=== PATIENT | female | born 1940 | race Caucasian/White ===

== ENCOUNTER 2017-06-08 09:55 | Inpatient (IN) ==
[2017-06-08] MEDS ORDERED: *HR* Morphine 2 MG/ML SYRINGE IVP PRN ×2 (10:58→18:20)
[2017-06-08] MEDS ORDERED: 0.9 % Sodium Chloride 1,000 ML IVC SCH ×2 (11:00→18:20)
[2017-06-08 11:22] LABS: Basophils % 0.7 %; Eosinophils # 0.1 K/mcL (0.0-0.6); Eosinophils % 2.2 %; Hematocrit 42.4 % (35.3-44.9); Hemoglobin 13.5 g/dL (11.5-15.4); Immature Granulocytes % 0.2 % (0-4); Lymphocytes # 1.2 K/mcL (0.6-4.6); Lymphocytes % 26.4 %; Mean Corpuscular HGB Conc 31.8 g/dL (31.6-35.5); Mean Corpuscular Hemoglobin 29.3 pg (28.0-33.3); Mean Corpuscular Volume 92.2 fL (83.0-100.0); Mean Platelet Volume 11.6 fL (9.4-12.4); Monocytes # 0.3 K/mcL (0.0-1.3); Monocytes % 6.9 %; Neutrophils # 2.8 K/mcL (1.6-8.9); Platelet Count 142 K/mcL (140-400); Red Cell Distribution Width 14.2 % (11.5-14.5); Segmented Neutrophils % 63.6 %
[2017-06-08 11:33] LABS: BUN/Creatinine Ratio 23 (6-26); Blood Urea Nitrogen 16 mg/dL (7-20); Calcium 9.1 mg/dL (8.6-10.8); Carbon Dioxide 28 mEq/L (19-29); Chloride 110 mEq/L (98-109); Glucose 113 mg/dL (70-99); Osmolality,Calculated 304 (280-300); Potassium 3.6 mEq/L (3.5-4.5); Sodium 146 mEq/L (136-145); eGFR For African Americans > 60 (> 60); eGFR For Non-African Americans > 60 (> 60)
[2017-06-08] MEDS ORDERED: Piperacillin/Tazobactam 3.375 GM in D5% in Water (Mini-Bag+) 100 ML IVPB SCH (12:00)
--- NOTE | 2017-06-08 13:18 | General Surg History&Physical ---
Date of Encounter: 06/08/17 Time of Encounter: 13:16 Assessment and Plan (1) Free intraperitoneal air Current Visit: Yes Status: Acute The assessment and plan as outlined above was discussed with the patient and/or family members who expressed understanding and agreement. All questions were answered. See below. (2) Sigmoid diverticulosis Current Visit: Yes Status: Acute The assessment and plan as outlined above was discussed with the patient and/or family members who expressed understanding and agreement. All questions were answered. Due to the CT scan findings showing free air and a large diverticulum that appears to be complete ruptured the patient will need to undergo an exploration with repair or resection of the sigmoid colon that has the involved segment of diverticulum or free air. Risks and benefits have been discussed with the patient and she agrees to the above plan. History of Present Illness Chief complaint: Free air HPI: Ms. Ruby is a 76 year old female with a history of tubular adenomas was scheduled for repeat colonoscopy had a colonoscopy procedure aborted today due to concern about possible barotrauma an injury to a diverticulum. Patient denies any abdominal pain symptoms nor any nausea or vomiting. A abdominal x- ray was performed with a upright chest x-ray which showed air under the diaphragms. Admitted to [facility] for further evaluation due to the abnormal findings free air and has a CT scan of the abdomen and pelvis ordered. Past Med Surg Social Fam HX - Past Medical History Medical history: diabetes, glaucoma, hyperlipidemia, hypertension Psychiatric history: no psych history - Past Surgical History Surgical History: cataract, cholecystectomy, hysterectomy - Social History Smoking Status: Never smoker Smokeless Tobacco Status: No Alcohol use: none Drug use: none Medications and Allergies Calcium Carbonate [Calcium] 1,200 mg PO DAILY 06/08/17 [History] Cholecalciferol (D-3) [Vitamin D] 1,000 unit PO DAILY 06/08/17 [History] Latanoprost [Xalatan] 1 drop OP QPM 06/08/17 [History] Lisinopril [Zestril] 10 mg PO DAILY 06/08/17 [History] Multivitamin [Multi-Day Vitamins] 1 tab PO DAILY 06/08/17 [History] Sertraline [Zoloft] 100 mg PO DAILY 06/08/17 [History] Simvastatin [Zocor] 20 mg PO HS 06/08/17 [History] 3 Allergy/AdvReac Type Severity Reaction Status Date / Time No Known Allergies Allergy Verified 06/08/17 07:52 Review of Systems All systems PM: reviewed and no additional remarkable complaints except as stated All systems PM: A 10-system review of systems was performed and is negative for pertinent findings except as documented above in the HPI. General Surgery Exam Initial Vital Signs Temp Pulse Resp BP Pulse Ox 97.8 F 56 18 173/75 95 06/08/17 10:45 06/08/17 10:45 06/08/17 10:45 06/08/17 10:45 06/08/17 10:45 - Eyes PERRL, normal ocular movement - Respiratory normal expansion, normal respiratory effort, clear to auscultation - Cardiovascular Cardiovascular exam: Present: RRR, no murmurs/rubs/gallops - Abdomen Abdomen general surgery: Present: bowel sounds present, soft, non tender - Integumentary Integumentary general surgery: Present: warm and dry - Neurologic Present: CN 2-12 grossly intact - Musculoskeletal Present: other (No clubbing, cyanosis, or edema) - Psychiatric Psychiatric general surgery: Present: A&Ox3, appropriate, oriented to person, oriented to place, oriented to time Results - Labs 06/08/17 11:08 06/08/17 11:08 Abnormal lab results Sodium 146 mEq/L (136-145) H 06/08/17 11:08 Chloride 110 mEq/L (98-109) H 06/08/17 11:08 Glucose 113 mg/dL (70-99) H 06/08/17 11:08 Calculated Osmolality 304 (280-300) H 06/08/17 11:08 Diabetes panel 06/08/17 Range/Units 11:08 Sodium 146 H (136-145) mEq/L Potassium 3.6 (3.5-4.5) mEq/L Chloride 110 H (98-109) mEq/L Carbon Dioxide 28 (19-29) mEq/L BUN 16 (7-20) mg/dL Creatinine 0.70 (0.57-1.11) mg/dL Glucose 113 H (70-99) mg/dL Calcium 9.1 (8.6-10.8) mg/dL Calcium panel 06/08/17 Range/Units 11:08 Calcium 9.1 (8.6-10.8) mg/dL Pituitary panel 06/08/17 Range/Units 11:08 Sodium 146 H (136-145) mEq/L Potassium 3.6 (3.5-4.5) mEq/L Chloride 110 H (98-109) mEq/L Carbon Dioxide 28 (19-29) mEq/L BUN 16 (7-20) mg/dL Creatinine 0.70 (0.57-1.11) mg/dL Glucose 113 H (70-99) mg/dL Calcium 9.1 (8.6-10.8) mg/dL Adrenal panel 06/08/17 Range/Units 11:08 Sodium 146 H (136-145) mEq/L Potassium 3.6 (3.5-4.5) mEq/L Chloride 110 H (98-109) mEq/L Carbon Dioxide 28 (19-29) mEq/L BUN 16 (7-20) mg/dL Creatinine 0.70 (0.57-1.11) mg/dL Glucose 113 H (70-99) mg/dL Calcium 9.1 (8.6-10.8) mg/dL All other labs normal. - Imaging Abdominal x-ray: report reviewed, image reviewed (Noted free air under the diaphragm) CT scan - abdomen: report reviewed, image reviewed (Diverticulosis is noted with signs of free air possible ruptured diverticulum at the level of the proximal sigmoid colon)
--- NOTE | 2017-06-08 13:47 | Anesthesia Evaluation PreOp ---
Date of Encounter: 06/08/17 Time of Encounter: 14:00 - Past History Planned Operation: exp. lap Cardiac History: HTN, Hyperlipidemia Pulmonary History: Denies Any Significant HX DRAFTER (CAD) ELECTRICAL History: Denies Any Significant HX Other Medical History: Diabetes Type II, Other (Underwent colonoscopy today and developed sigmoid perforation with free air.) Anesthesia History: No Prior Anesthetic Complications, Past Anesthesia Alcohol Use: none Drug use: none Medications and Allergies Calcium Carbonate [Calcium] 1,200 mg PO DAILY 06/08/17 [History] Cholecalciferol (D-3) [Vitamin D] 1,000 unit PO DAILY 06/08/17 [History] Latanoprost [Xalatan] 1 drop OP QPM 06/08/17 [History] Lisinopril [Zestril] 10 mg PO DAILY 06/08/17 [History] Multivitamin [Multi-Day Vitamins] 1 tab PO DAILY 06/08/17 [History] Sertraline [Zoloft] 100 mg PO DAILY 06/08/17 [History] Simvastatin [Zocor] 20 mg PO HS 06/08/17 [History] 3 Allergy/AdvReac Type Severity Reaction Status Date / Time No Known Allergies Allergy Verified 06/08/17 07:52 - Meds/Allergy Pre-op Review Medications Reviewed: Yes Allergies Reviewed: Yes Beta Blockers on Current Med List: No Anesthesia Results - Labs 06/08/17 11:08 06/08/17 11:08 - Imaging EKG: pending Anesthesia Exam Selected Entries 06/08/17 10:48 Temperature 97.8 F Pulse Rate 56 Respiratory Rate 18 Blood Pressure 173/75 O2 Sat by Pulse Oximetry 95 Weight: 77 kg NPO (# of Hours): over 8 hours - HEENT Pupil (Motor): Pupils equal Mallampati: II Teeth: Missing Oral Opening: Greater than 3 - Cardiac Rhythm: Regular Murmur: None - Pulmonary Breath Sounds: bilateral Clear Respiratory Effort: Symmetrical Anesthesia Assess/Plan ASA Score: 2 Modified [place] Scale for Level of Consciousness: Cooperative, oriented, and tranquil Anesthetic Plan: General Monitoring Plan: Standard Monitors Recovery Plan: PACU (Discussed GA, risks. Agreed to proceed.)
[2017-06-08] MEDS ORDERED: CefOXitin 1,000 MG VIAL ONE (14:10)
[2017-06-08] MEDS ORDERED: *HR* FentaNYL (PF) 100 MCG/2 ML VIAL ONE (14:23)
[2017-06-08] MEDS ORDERED: Lidocaine -MPF 2% 2 ML VIAL ONE (14:23)
[2017-06-08] MEDS ORDERED: *HR* Succinylcholine 200 MG/10 ML VIAL IVP ONE (14:23)
[2017-06-08] MEDS ORDERED: *HR* Rocuronium Bromide 50 MG/5 ML VIAL ONE (14:23)
[2017-06-08] MEDS ORDERED: Ondansetron 4 MG/2 ML VIAL ONE (14:23)
[2017-06-08] MEDS ORDERED: Lidocaine -MPF 4% 5 ML AMPUL ONE (14:23)
[2017-06-08] MEDS ORDERED: Dexamethasone 4 MG/ML VIAL ONE (14:23)
[2017-06-08] MEDS ORDERED: *HR* Midazolam HCl 2 MG/2 ML VIAL ONE (14:23)
[2017-06-08] MEDS ORDERED: *HR* Propofol 200 MG/20 ML VIAL IVP ONE (14:23)
[2017-06-08] MEDS ORDERED: EPHEDrine 50 MG/ML VIAL ONE (15:49)
[2017-06-08] MEDS ORDERED: Neostigmine Methylsulfate 3 MG/3 ML SYRINGE ONE (15:57)
[2017-06-08] MEDS ORDERED: *HR* HYDROmorphone 2 MG/ML SYRINGE ONE (16:54)
--- NOTE | 2017-06-08 17:22 | Operative Note ---
Date of procedure: 06/08/17 Pre-op diagnosis: Free air; sigmoid perforation Post-op diagnosis: same Procedure: 1. Exploratory celiotomy. 2. Repair of perforated sigmoid diverticulum. Implants: 19FR Nathaniel x 1 Anesthesia: GETA Surgeon: Enrique Kuhn Condition: stable Disposition: PACU Procedure in Detail: Date of surgery: 06/08/17 After properly identifying the patient, the patient was brought to the operating room and placed in a supine position. After proper IV sedation was achieved followed by general endotracheal intubation, the patient's abdomen and perineal area was prepped and draped in a normal sterile fashion after the patient was placed in the low lithotomy position. A timeout was performed noting the patient's name and type of procedure to be performed. 15 blade scalpel was used to make an infraumbilical midline incision down towards the pubic symphysis. Dissection was carried through the subcutaneous tissue until the abdominal rectus fascia was encountered and incised. This allowed for entry into the abdomen and an Bobby wound protector was brought onto the operative field. A Bookwalter was used to retract the abdominal wall fascia laterally and based upon the CT scan image the right lower quadrant region of the pelvis was examined. Sigmoid colon was identified in this region which had a clear space and some erythema along the epiploica which was consistent with the CT scan finding of the likely source of the perforation. The epiploica was dissected free with Bovie cauterization demonstrating a perforated diverticulum. The fatty tissue surrounding this diverticulum was cleared with Bovie cauterization and blunt dissection and the decision was made to go ahead and perform a repair using a TA stapler. This was repaired tangentially without difficulty and the staple line was imbricated with interrupted 3-0 silk sutures. The pelvis was then copiously irrigated with normal saline solution containing Mefoxin. The pelvis was reinspected which appear to be clear. The staple line was reinspected which also appeared to be hemostatically under control. The decision was made to place a 19-Polish Nathaniel drain within the pelvis which was sutured in place with a 2-0 nylon suture and Seprafilm was placed within the abdomen. The abdominal wall fascia was closed with a running looped #1 PDS suture 2. The subcutaneous tissue was reapproximated with interrupted 2-0 Vicryl sutures and 3-0 Vicryl sutures. Portions of the wound were left open for packing with quarter-inch plain Nu Gauze was placed for packing. Needle, sponge, and instrument counts were correct 2 and the incision was covered with 4 x 4 gauze. The patient was aroused from IV sedation , extubated in the operating room without complication, and transported to the recovery room in stable condition.
[2017-06-08] MEDS ORDERED: *HR* Heparin 5,000 UNIT/ML VIAL SQ SCH (18:00)
--- NOTE | 2017-06-08 18:11 | Anesthesia Evaluation Post Op ---
Date of Encounter: 06/08/17 Time of Encounter: 18:09 - Vital Signs Vital Signs: O2 Sat Height 1.5 m Weight 77 kg O2 Sat by Pulse Oximetry 93 O2 Sat by Pulse Oximetry 98 O2 Sat by Pulse Oximetry 98 O2 Sat by Pulse Oximetry 95 O2 Sat by Pulse Oximetry 88 O2 Sat by Pulse Oximetry 96 O2 Sat by Pulse Oximetry 95 O2 Sat by Pulse Oximetry 95 Vital Signs Temp Pulse Resp BP Pulse Ox 97.8 F 56 18 173/75 95 06/08/17 10:45 06/08/17 10:45 06/08/17 10:45 06/08/17 10:45 06/08/17 10:45 - Lungs Lungs: Clear Ascult./Percussion - Airway Airway: Non-obstructed - Cardiovascular Regular Rate - Mental Status Mental Status: Alert & Oriented, Answers Appropriately - Pain Pain Scale used: Numeric (1 - 10) - Nausea Vomiting Nausea Vomiting: Not Present - Hydration Hydration: Ice chips, Able to void - Discharge PostOp Status: Discharge Patient to home Anes Supervising Prov Stmt: Pt seen/evaluated, VSS and pt has met criteria for discharge to floor. - MD Alexx
[2017-06-08] MEDS ORDERED: *HR* OxyCODONE/APAP 10/325 TABLET PO PRN (18:20)
[2017-06-08] MEDS ORDERED: Ondansetron 4 MG/2 ML VIAL IVP PRN (18:20)
[2017-06-08] MEDS ORDERED: Naloxone 0.4 MG/ML INJ IVP PRN (18:20)
[2017-06-08] MEDS ORDERED: *HR* Metoprolol 5 MG/5 ML VIAL IVP ONE ×2 (19:33→19:37)
[2017-06-08 20:20] LABS: BUN/Creatinine Ratio 20 (6-26); Blood Urea Nitrogen 15 mg/dL (7-20); Calcium 8.7 mg/dL (8.6-10.8); Carbon Dioxide 23 mEq/L (19-29); Chloride 108 mEq/L (98-109); Glucose 182 mg/dL (70-99); Magnesium 1.7 mg/dL (1.6-2.6); Osmolality,Calculated 297 (280-300); Potassium 3.7 mEq/L (3.5-4.5); Sodium 141 mEq/L (136-145); eGFR For African Americans > 60 (> 60); eGFR For Non-African Americans > 60 (> 60)
[2017-06-08] MEDS ORDERED: Magnesium Sulfate 1 GM in D5% in Water 100 ML IVPB ONE (20:24)
--- NOTE | 2017-06-08 20:30 | Internal Medicine Consult Note ---
Date of Encounter: 06/08/17 Time of Encounter: 20:26 - Assessment and Plan (1) New onset a-fib Current Visit: Yes Status: Acute Assessment and plan: likely related to stress of surgery, cardizem 30mg QID with holding parameters, 1mg IV mg, check Mg/K, repeat EKG in the a.m - hopefully converted to NSR (2) Perforated sigmoid colon Current Visit: Yes Status: Acute Assessment and plan: d/w surgery, doing well from surgical standpoint, management per surgery (3) HTN (hypertension), malignant Current Visit: Yes Status: Acute Assessment and plan: lisinopril (4) HLD (hyperlipidemia) Current Visit: Yes Status: Acute Assessment and plan: continue statin Qualifiers: Hyperlipidemia type: pure hypercholesterolemia Qualified Code(s): E78.00 - Pure hypercholesterolemia, unspecified; E78.0 - Pure hypercholesterolemia (5) Depression Current Visit: Yes Status: Chronic Assessment and plan: continue med. stable Qualifiers: Depression Type: major depressive disorder Major depression recurrence: single episode Active/Remission status: in full remission Qualified Code(s) : F32.5 - Major depressive disorder, single episode, in full remission Internal Medicine - CN: HPI - Data of Consult Consult date: 06/08/17 Requesting Physician: Enrique Kuhn MD - Consult Narrative Reason for consult: New AFib History of present illness: Ms. Ruby is a 76 year old female who presents with new AFib while in the hospital. She has a hx of HTN, HLD, depression. She had an elective colonoscopy today and found a perforated sigmoid diverticulum. She received an exploratory surgery with repair of perforation. She is POD O. However, post-op she developed AFib rvr with rate 172 personally reviewed but responsed quickly to metoprolol IV once. She appears to have been cardioverted with that one time b-yakov. She denies any symptoms at current or during the episode and episode was noted incidentally on monitoring. Past Med Surg Social Fam HX - Past Medical History Medical history: diabetes, glaucoma, hyperlipidemia, hypertension Psychiatric history: no psych history - Past Surgical History Surgical History: cataract, cholecystectomy, hysterectomy - Social History Smoking Status: Never smoker Smokeless Tobacco Status: No Alcohol use: none Drug use: none - Additional Family History Additional family history: HTN Review of systems: ROS 14 point review of systems reviewed as best as possible given presentation. Pertinent positive or negative as per HPI or otherwise reviewed as negative Internal Medicine - CN: Meds Calcium Carbonate [Calcium] 1,200 mg PO DAILY 06/08/17 [History] Cholecalciferol (D-3) [Vitamin D] 1,000 unit PO DAILY 06/08/17 [History] Latanoprost [Xalatan] 1 drop OP QPM 06/08/17 [History] Lisinopril [Zestril] 10 mg PO DAILY 06/08/17 [History] Multivitamin [Multi-Day Vitamins] 1 tab PO DAILY 06/08/17 [History] Sertraline [Zoloft] 100 mg PO DAILY 06/08/17 [History] Simvastatin [Zocor] 20 mg PO HS 06/08/17 [History] 3 Allergy/AdvReac Type Severity Reaction Status Date / Time No Known Allergies Allergy Verified 06/08/17 07:52 Internal Medicine - CN: Exam - Constitutional Vitals: Temp Pulse Resp BP Pulse Ox 97.8 F 67 14 115/74 94 06/08/17 18:50 06/08/17 19:45 06/08/17 18:50 06/08/17 19:45 06/08/17 19:45 Exam: General - AAO x 3 Psych - Appropriate affect/speech. No agitation Eyes - BRENT. Eye lids intact. No scleral icterus Heart - Sinus. RRR. S1 and S2 present. No added HS/murmurs appreciated. No elevated JVD appreciated. Lung - Adequate air entry b/l, No crackles/wheezes appreciated GI - Abdominal drain present. Wound dressed.. No hepatosplenomegaly/ascites. BS+ Skin - Intact. No rash/petechiae/ecchymosis. Warm extremities MSK - Joints with normal ROM. No joint swellings Internal Medicine - CN: Reslt - Labs CBC & Chem 7: 06/08/17 11:08 06/08/17 20:00 Labs: Short CBC 06/08/17 Range/Units 11:08 WBC 4.5 (4.3-11.1) K/mcL Hgb 13.5 (11.5-15.4) g/dL Hct 42.4 (35.3-44.9) % Plt Count 142 (140-400) K/mcL Neutrophils # 2.8 (1.6-8.9) K/mcL BMP 06/08/17 06/08/17 11:08 20:00 Sodium 146 H 141 Potassium 3.6 3.7 Chloride 110 H 108 Carbon Dioxide 28 23 BUN 16 15 Creatinine 0.70 0.74 Glucose 113 H 182 H Calcium 9.1 8.7 - Impressions Impressions Abdomen/Pelvis CT 06/08/17 11:59 IMPRESSION: Extensive free air felt to be related to perforated diverticulum in the distal sigmoid colon. This information was discussed at 1 p.m. on 06/08/[address] Kuhn D/ / Ender Erickson MD / Ender Erickson MD Interpreting Provider: Ender Erickson MD Consult Discharge Plan - Plan Referrals: NONE,PCP [Primary Care Provider] -
[2017-06-08] MEDS: Piperacillin/Tazobactam 3.375 GM in D5% in Water (Mini-Bag+) 100 ML IVPB SCH (21:20)
[2017-06-09] MEDS: Piperacillin/Tazobactam 3.375 GM in D5% in Water (Mini-Bag+) 100 ML IVPB SCH ×3 (04:47→23:09)
[2017-06-09 05:08] LABS: Basophils % 0.1 %; Eosinophils % 0.1 %; Hematocrit 37.7 % (35.3-44.9); Immature Granulocytes % 0.5 % (0-4); Lymphocytes % 8.3 %; Mean Corpuscular HGB Conc 31.8 g/dL (31.6-35.5); Mean Corpuscular Hemoglobin 29.2 pg (28.0-33.3); Mean Corpuscular Volume 91.7 fL (83.0-100.0); Mean Platelet Volume 11.8 fL (9.4-12.4); Monocytes # 0.7 K/mcL (0.0-1.3); Monocytes % 6.1 %; Platelet Count 142 K/mcL (140-400); Red Blood Count 4.11 M/mcL (3.82-4.97); Red Cell Distribution Width 14.6 % (11.5-14.5); Segmented Neutrophils % 84.9 %
[2017-06-09 05:18] LABS: BUN/Creatinine Ratio 19 (6-26); Blood Urea Nitrogen 14 mg/dL (7-20); Calcium 8.7 mg/dL (8.6-10.8); Carbon Dioxide 26 mEq/L (19-29); Chloride 107 mEq/L (98-109); Glucose 152 mg/dL (70-99); Osmolality,Calculated 293 (280-300); Sodium 140 mEq/L (136-145); eGFR For African Americans > 60 (> 60); eGFR For Non-African Americans > 60 (> 60)
[2017-06-09] MEDS: Pantoprazole 40 MG VIAL IVP SCH (08:25)
--- NOTE | 2017-06-09 08:28 | Internal Med Progress Note ---
Date of Encounter: 06/09/17 Time of Encounter: 08:24 - Assessment and plan (1) New onset a-fib Current Visit: Yes Status: Acute Assessment and plan: Triggered by surgery stress Converted back to NSR right away this morning she had another episode with tachycardia / Sinus arrythamia ..but no A fib noticed She got converted back to NSR again with out any interventions For now will cont Cardizem 60mg Q6hr Ordered 2 D Echo her CHADSVAS score 3.. However this is first time A fib triggered by surgery stress, may not need to be fully anticoagulated Will f/u on 2 D Echo If surgery ok, will start her on ASA 81mg daily Ordered f/u EKG now Talked to the pt's family at bed side and explained to them about current care (2) Perforated sigmoid colon Current Visit: Yes Status: Acute Assessment and plan: s/p Exploratory Celiotomy POD # 1 WBC went up little bit.. mostly reactive Cont current excellent post op care by primary team cont empirical abx Zosyn Diet orders as per surgery recommendations only (3) HTN (hypertension), malignant Current Visit: Yes Status: Acute Assessment and plan: Stable.. On Cardizem PO (4) HLD (hyperlipidemia) Current Visit: Yes Status: Acute Assessment and plan: on statin Qualifiers: Hyperlipidemia type: pure hypercholesterolemia Qualified Code(s): E78.00 - Pure hypercholesterolemia, unspecified; E78.0 - Pure hypercholesterolemia (5) Depression Current Visit: Yes Status: Chronic Assessment and plan: continue home meds Qualifiers: Depression Type: major depressive disorder Major depression recurrence: single episode Active/Remission status: in full remission Qualified Code(s) : F32.5 - Major depressive disorder, single episode, in full remission - Subjective Interval history: Ms. Ruby is a 76 year old female who presents with new AFib while in the hospital. She has a hx of HTN, HLD, depression. She had an elective colonoscopy 06/08/17 and found a perforated sigmoid diverticulum. She received an exploratory surgery with repair of perforation. However, post-op she developed AFib rvr with rate 172 responded quickly to metoprolol 2.5 mg IV once. She appears to have been cardioverted with that one time b-yakov. This is morning pt is alert, awkae and O x 3, denied any CP / SOB / Palpiations. However on medical administrative technician she went into sinus arrhythmia / sinus tachycardia for 10-15 minutes HR in 130's. She got converted back to NSR right away by herself with out any medication intervene. Pt denied any nausea / vomiting. No BM , not passing gas yet. Pain tolerable with medications - Constitutional Vitals: Temp Pulse Resp BP Pulse Ox 98.4 F 137 16 146/68 96 06/09/17 07:08 06/09/17 08:23 06/09/17 07:08 06/09/17 07:08 06/09/17 07:08 General appearance: Present: A&O X 3, pleasant, no acute distress, answers questions appropriately - Head Head exam: Present: atraumatic, normal inspection - Respiratory Respiratory exam: Present: decreased breath sounds, wheezes. Absent: rales, respiratory distress, rhonchi - Cardiovascular Cardiovascular exam: Present: irregular rhythm, +S1, +S2, tachycardia - GI/Abdominal GI/Abdominal exam: Present: hypoactive bowel sounds, soft, tenderness (around incision area). Absent: rebound, rigid Additional comments: NICOLE drainage tube + - Extremities Exam Extremities exam: Absent: calf tenderness, pedal edema, tenderness - Neurological Exam Neurological exam: Present: alert, oriented X3, no focal deficits - Psychiatric Psychiatric exam: Present: anxious Internal Medicine: Result - Labs CBC & Chem 7: 06/09/17 04:50 06/09/17 04:50 Labs: Short CBC 06/08/17 06/09/17 Range/Units 11:08 04:50 WBC 4.5 11.8 H D (4.3-11.1) K/mcL Hgb 13.5 12.0 D (11.5-15.4) g/dL Hct 42.4 37.7 (35.3-44.9) % Plt Count 142 142 (140-400) K/mcL Neutrophils # 2.8 10.0 H (1.6-8.9) K/mcL BMP 06/08/17 06/08/17 06/09/17 11:08 20:00 04:50 Sodium 146 H 141 140 Potassium 3.6 3.7 4.0 Chloride 110 H 108 107 Carbon Dioxide 28 23 26 BUN 16 15 14 Creatinine 0.70 0.74 0.73 Glucose 113 H 182 H 152 H Calcium 9.1 8.7 8.7 - Impressions Impressions Abdomen/Pelvis CT 06/08/17 11:59 IMPRESSION: Extensive free air felt to be related to perforated diverticulum in the distal sigmoid colon. This information was discussed at 1 p.m. on 06/08/[address] Kuhn D/ / Ender Erickson MD / Ender Erickson MD Interpreting Provider: Ender Erickson MD - VTE Documentation of Mechanical Device: Intermittent pneumatic compression device Consult Discharge Plan - Plan Referrals: NONE,PCP [Primary Care Provider] -
[2017-06-09] MEDS ORDERED: Pantoprazole 40 MG VIAL IVP SCH (09:00)
--- NOTE | 2017-06-09 09:21 | General Surgery Progress Note ---
<Fartun Lewis A - Last Filed: 06/09/17 09:40> Date of Encounter: 06/09/17 Time of Encounter: 09:00 - Assessment and Plan (1) Perforated sigmoid colon Current Visit: Yes Status: Acute POD #1 Exploratory celiotomy and Repair of perforated sigmoid diverticulum Clear liquid diet IV antibiotics- Zosyn Supportive care and pain control Out of bed to chair and ambulate hallways with assistance today PPI therapy daily D/C sharp catheter IS every 1 hour while awake Start daily dressing changes Patient and family education- drain care and packing Repeat am labs (2) Free intraperitoneal air Current Visit: Yes Status: Acute POD #1 Exploratory celiotomy and Repair of perforated sigmoid diverticulum Clear liquid diet IV antibiotics- Zosyn Supportive care and pain control Out of bed to chair and ambulate hallways with assistance today PPI therapy daily D/C sharp catheter IS every 1 hour while awake Start daily dressing changes Patient and family education- drain care and packing Repeat am labs (3) New onset a-fib Current Visit: Yes Status: Acute Management per medicine service Spontaneously resolved Cardizem every 6 hours May start ASA 81mg daily from surgery standpoint (4) DVT prophylaxis Current Visit: Yes Status: Acute Heparin 5,000 units SQ twice daily for DVT prophylaxis EPCDs to bilateral lower extremities for DVT prophylaxis Ambulate hallways TID with assistance Subjective Patient reports: no new complaints, feels better, still having pain (minimal, expected surgical pain), tolerating liquids well, no flatus, no bowel movement, afebrile, other (Episodes of A. Fib and tachycardia noted- spontaneous resolution, management per medicine service) Objective Vital Signs - Last 8 Hours Temp Pulse Resp BP Pulse Ox 06/09/17 08:28 74 06/09/17 08:25 124/68 06/09/17 08:23 137 06/09/17 07:08 98.4 F 60 16 146/68 96 06/09/17 04:21 98.8 F 65 16 126/68 96 Intake and Output 06/08/17 06/09/17 06/09/17 23:59 07:59 15:59 Intake Total 104 / 104 100 / 100 Output Total 420 / 420 160 / 160 Balance -316 / -316 -60 / -60 - Intake: IV Fluids 104 / 104 100 / 100 Magnesium Sulfate 1 GM In 104 / 104 Dextrose 5% 100 ML @ 100 mls/hr IVPB ONCE ONE Rx# :[id number] Zosyn 3.375 GM In 100 / 100 Dextrose 5% (Minibag+) 100 ML 100 ML @ 25 mls/hr IVPB Q8H [facility]LY [facility] Rx#: [id number] Output: Urine 0 / 0 Estimated Blood Loss Catheter 350 / 350 150 / 150 Wound Drainage 55 Left Lower Abdomen 55 Other: Weight 80.2 kg Blood Glucose* 168 154 Patient Weight 06/09/17 23:59 Weight 80.2 kg - General physical appearance well developed, well nourished, no distress - Eyes normal ocular movement - ENT normal mucosa, atraumatic, normocephalic - Neck Neck exam: trachea midline - Respiratory normal respiratory effort, clear to auscultation, other (IS at bedside) - Cardiovascular Cardiovascular exam: Present: RRR - Abdomen Abdomen: Present: bowel sounds present (hypoactive), soft, tender (expected post -operative tenderness), wound (NICOLE drain to bulb suction with scant amount of serousang. drainage noted. Midline with scant amount of serousang. drainage noted. ) - Genitourinary other (sharp catheter to SD with clear, yellow urine noted (500ml noted since surgery)) - Integumentary no rash, no growths, no abnormal pigmentation - Neurologic CN 2-12 grossly intact - Psychiatric oriented to time, oriented to person, oriented to place, speech is normal, memory intact - Labs 06/09/17 04:50 06/09/17 04:50 Diabetes panel 06/08/17 06/08/17 06/09/17 Range/Units 11:08 20:00 04:50 Sodium 146 H 141 140 (136-145) mEq/L Potassium 3.6 3.7 4.0 (3.5-4.5) mEq/L Chloride 110 H 108 107 (98-109) mEq/L Carbon Dioxide 28 23 26 (19-29) mEq/L BUN 16 15 14 (7-20) mg/dL Creatinine 0.70 0.74 0.73 (0.57-1.11) mg/dL Glucose 113 H 182 H 152 H (70-99) mg/dL Calcium 9.1 8.7 8.7 (8.6-10.8) mg/dL Calcium panel 06/08/17 06/08/17 06/09/17 Range/Units 11:08 20:00 04:50 Calcium 9.1 8.7 8.7 (8.6-10.8) mg/dL Pituitary panel 06/08/17 06/08/17 06/09/17 Range/Units 11:08 20:00 04:50 Sodium 146 H 141 140 (136-145) mEq/L Potassium 3.6 3.7 4.0 (3.5-4.5) mEq/L Chloride 110 H 108 107 (98-109) mEq/L Carbon Dioxide 28 23 26 (19-29) mEq/L BUN 16 15 14 (7-20) mg/dL Creatinine 0.70 0.74 0.73 (0.57-1.11) mg/dL Glucose 113 H 182 H 152 H (70-99) mg/dL Calcium 9.1 8.7 8.7 (8.6-10.8) mg/dL Adrenal panel 06/08/17 06/08/17 06/09/17 Range/Units 11:08 20:00 04:50 Sodium 146 H 141 140 (136-145) mEq/L Potassium 3.6 3.7 4.0 (3.5-4.5) mEq/L Chloride 110 H 108 107 (98-109) mEq/L Carbon Dioxide 28 23 26 (19-29) mEq/L BUN 16 15 14 (7-20) mg/dL Creatinine 0.70 0.74 0.73 (0.57-1.11) mg/dL Glucose 113 H 182 H 152 H (70-99) mg/dL Calcium 9.1 8.7 8.7 (8.6-10.8) mg/dL - VTE Documentation of Mechanical Device: Intermittent pneumatic compression device Consult Discharge Plan - Plan Additional Instructions: #1 may shower now, no tub bath until cleared per surgeon #2 wash incisions with soap and water and pat dry daily #3 no lifting, pushing, pulling more than 15 pounds for the next 4 weeks #4 no driving until off narcotics for 24 hours and able to safely react in the car #5 may climb stairs Wound care: #1 midline incision- cleanse around incision with soap and water and pat dry daily, pack open areas with a quarter inch plain gauze, covered with dry dressing, tape to secure daily #2 NICOLE drain- cleanse around drain with soap and water and pat dry daily, apply split 4 x 4 gauze and tape to secure daily. Empty drain 2 times daily and as needed if full, record outputs on drain record and bring to follow up appointment on 06/15/2017 with Fartun Lewis Referrals: Fartun Lewis, SENIOR COPYWRITER [Advanced Practice Nurse] - 06/15/17 11:45 am (surgery follow-up; drain check) NONE,PCP [Primary Care Provider] - (Set patient up with primary care provider prior to discharge and schedule appointment within 5-7 days of discharge.) - Attending Attestation For this encounter, I have reviewed the BUILDING CERTIFIER or PA documentation, treatment plan, and medical decision making; and I have had face to face time with this patient. <Enrique Kuhn - Last Filed: 06/09/17 13:57> Date of Encounter: 06/09/17 - Assessment and Plan (1) Free intraperitoneal air Current Visit: Yes Status: Resolved (2) Sigmoid diverticulosis Current Visit: Yes Status: Acute Objective Vital Signs - Last 8 Hours Temp Pulse Resp BP Pulse Ox 06/09/17 12:25 99.1 F 65 16 125/72 96 06/09/17 08:28 74 06/09/17 08:25 124/68 06/09/17 08:23 137 06/09/17 07:08 98.4 F 60 16 146/68 96 Intake and Output 06/08/17 06/09/17 06/09/17 23:59 07:59 15:59 Intake Total 104 / 104 100 / 100 Output Total 420 / 420 160 / 160 764 / 764 Balance -316 / -316 -60 / -60 -764 / -764 Intake: IV Fluids 104 / 104 100 / 100 Magnesium Sulfate 1 GM In 104 / 104 Dextrose 5% 100 ML @ 100 mls/hr IVPB ONCE ONE Rx# :[id number] Zosyn 3.375 GM In 100 / 100 Dextrose 5% (Minibag+) 100 ML 100 ML @ 25 mls/hr IVPB Q8H [facility] Rx#: [id number] Output: Urine 0 / 0 750 / 750 Estimated Blood Loss Catheter 350 / 350 150 / 150 Wound Drainage 55 / 55 Left Lower Abdomen 55 / 55 Other: Weight 80.2 kg Blood Glucose* 168 144 Patient Weight 06/09/17 23:59 Weight 80.2 kg - Labs 06/09/17 04:50 06/09/17 04:50 Diabetes panel 06/08/17 06/09/17 Range/Units 20:00 04:50 Sodium 141 140 (136-145) mEq/L Potassium 3.7 4.0 (3.5-4.5) mEq/L Chloride 108 107 (98-109) mEq/L Carbon Dioxide 23 26 (19-29) mEq/L BUN 15 14 (7-20) mg/dL Creatinine 0.74 0.73 (0.57-1.11) mg/dL Glucose 182 H 152 H (70-99) mg/dL Calcium 8.7 8.7 (8.6-10.8) mg/dL Calcium panel 06/08/17 06/09/17 Range/Units 20:00 04:50 Calcium 8.7 8.7 (8.6-10.8) mg/dL Pituitary panel 06/08/17 06/09/17 Range/Units 20:00 04:50 Sodium 141 140 (136-145) mEq/L Potassium 3.7 4.0 (3.5-4.5) mEq/L Chloride 108 107 (98-109) mEq/L Carbon Dioxide 23 26 (19-29) mEq/L BUN 15 14 (7-20) mg/dL Creatinine 0.74 0.73 (0.57-1.11) mg/dL Glucose 182 H 152 H (70-99) mg/dL Calcium 8.7 8.7 (8.6-10.8) mg/dL Adrenal panel 06/08/17 06/09/17 Range/Units 20:00 04:50 Sodium 141 140 (136-145) mEq/L Potassium 3.7 4.0 (3.5-4.5) mEq/L Chloride 108 107 (98-109) mEq/L Carbon Dioxide 23 26 (19-29) mEq/L BUN 15 14 (7-20) mg/dL Creatinine 0.74 0.73 (0.57-1.11) mg/dL Glucose 182 H 152 H (70-99) mg/dL Calcium 8.7 8.7 (8.6-10.8) mg/dL - Attending Attestation I reviewed the above assessment and evaluation with an power plant electrician and agree with the above plan. Patient has no abdominal pain dressing is intact. Minimal NICOLE bulb drainage. Will advance diet to full liquids this afternoon. The patient continues to do well possible further advancement of her diet tomorrow possible discharge within the next 24 hours.
--- NOTE | 2017-06-09 11:06 | Discharge Summary ---
<Fartun Lewis - Last Filed: 06/09/17 11:06> Date of Encounter: 06/09/17 Time of Encounter: 11:05 - Discharge Diagnosis (1) Perforated sigmoid colon Priority: Primary Status: Resolved (2) Free intraperitoneal air Priority: Primary Status: Resolved (3) New onset a-fib Priority: Secondary Status: Acute - Discharge Medications Home Medications: Calcium Carbonate [Calcium] 1,200 mg PO DAILY 06/08/17 [History] Cholecalciferol (D-3) [Vitamin D] 1,000 unit PO DAILY 06/08/17 [History] Latanoprost [Xalatan] 1 drop OP QPM 06/08/17 [History] Lisinopril [Zestril] 10 mg PO DAILY 06/08/17 [History] Multivitamin [Multi-Day Vitamins] 1 tab PO DAILY 06/08/17 [History] Sertraline [Zoloft] 100 mg PO DAILY 06/08/17 [History] Simvastatin [Zocor] 20 mg PO HS 06/08/17 [History] Amoxicillin/Clavulanate [Augmentin] 875 mg PO BIDWM #20 tablet 06/09/17 [Rx] Aspirin 81 mg PO DAILY #30 06/09/17 [Rx] Docusate [Colace] 100 mg PO BID #30 capsule 06/09/17 [Rx] Ibuprofen [Motrin] 600 mg PO Q8HR PRN #40 tab 06/09/17 [Rx] OxyCODONE/APAP 5/325 [Percocet 5/325 MG] 1 each PO Q6HR PRN #28 tablet 06/09/17 [Rx] Allergies/Adverse Reactions: 3 Allergy/AdvReac Type Severity Reaction Status Date / Time No Known Allergies Allergy Verified 06/08/17 07:52 General Surgery Exam Initial Vital Signs Temp Pulse Resp BP Pulse Ox 97.8 F 56 18 173/75 95 06/08/17 10:45 06/08/17 10:45 06/08/17 10:45 06/08/17 10:45 06/08/17 10:45 Date of admission: 06/08/17 10:22 Primary care physician: PCP NONE Discharging clinician: Ramo Lewis) Anticipated date of discharge: 06/11/17 - Patient Status Condition: Good Functional capacity at discharge: independent ambulation Overall status at discharge: patient is progressing back to baseline - Discharge Instructions Follow Up With: NONE,PCP [Primary Care Provider] - (Set patient up with primary care provider prior to discharge and schedule appointment within 5-7 days of discharge.) Fartun Lewis, SALVAGE ENGINEERING TECHNICIAN [Advanced Practice Nurse] - 06/15/17 11:45 am (surgery follow-up; drain check) Additional Instructions: #1 may shower now, no tub bath until cleared per surgeon #2 wash incisions with soap and water and pat dry daily #3 no lifting, pushing, pulling more than 15 pounds for the next 4 weeks #4 no driving until off narcotics for 24 hours and able to safely react in the car #5 may climb stairs Wound care: #1 midline incision- cleanse around incision with soap and water and pat dry daily, pack open areas with a quarter inch plain gauze, covered with dry dressing, tape to secure daily #2 NICOLE drain- cleanse around drain with soap and water and pat dry daily, apply split 4 x 4 gauze and tape to secure daily. Empty drain 2 times daily and as needed if full, record outputs on drain record and bring to follow up appointment on 06/15/2017 with Fartun Lewis - Diet and Activity Activity: other (See additional instructions above) Diet: advance to your usual diet - Hospital Course Hospital course: Ms. Ruby is a 76 year old female who is status post an outpatient colonoscopy with Dr. Kuhn. She did have complications which included perforation of the sigmoid colon. She was maintained on bowel rest and started on IV fluids and IV antibiotics. She was taken to the operating room and did undergo exploratory celiotomy with repair of sigmoid perforation with Dr. Kuhn. She was continued on IV antibiotics postoperatively. She did experience postoperative atrial fibrillation with RVR. The hospitalist service was consulted for management and the patient was initiated on Cardizem and baby aspirin. 2D echo was complete. She was started on a clear liquid diet and slowly advanced as tolerated. Daily dressing change with packing was initiated on postoperative day 1. The patient's daughter states that she can complete these dressing changes and drain care upon discharge to home. We will begin discharge planning to home when patient meets discharge criteria including vital signs are stable and afebrile, pain is well-controlled, laboratory values are stable, voiding and ambulating without difficulty, tolerating a diet without nausea or vomiting. - Time Spent with Patient Total time spent providing and/or coordinating discharge services: Less than 30 minutes Labs on day of discharge: Labs from last 24 hours 06/09/17 06/09/17 06/09/17 09:01 04:50 04:50 WBC 11.8 H D RBC 4.11 Hgb 12.0 D Hct 37.7 MCV 91.7 MCH 29.2 MCHC 31.8 RDW 14.6 H Plt Count 142 MPV 11.8 Immature Gran % 0.5 Seg Neutrophils % 84.9 Lymphocytes % 8.3 Monocytes % 6.1 Eosinophils % 0.1 Basophils % 0.1 Neutrophils # 10.0 H Lymphocytes # 1.0 Monocytes # 0.7 Eosinophils # 0.0 Basophils # 0.0 Sodium 140 Potassium 4.0 Chloride 107 Carbon Dioxide 26 BUN 14 Creatinine 0.73 Est GFR ( Amer) > 60 Est GFR (Non-Af Amer) > 60 BUN/Creatinine Ratio 19 Glucose 152 H POC Glucose 154 H Calculated Osmolality 293 Calcium 8.7 Magnesium 2.0 06/08/17 06/08/17 06/08/17 20:26 20:00 11:08 WBC RBC Hgb Hct MCV MCH MCHC RDW Plt Count MPV Immature Gran % Seg Neutrophils % Lymphocytes % Monocytes % Eosinophils % Basophils % Neutrophils # Lymphocytes # Monocytes # Eosinophils # Basophils # Sodium 141 146 H Potassium 3.7 3.6 Chloride 108 110 H Carbon Dioxide 23 28 BUN 15 16 Creatinine 0.74 0.70 Est GFR ( Amer) > 60 > 60 Est GFR (Non-Af Amer) > 60 > 60 BUN/Creatinine Ratio 20 23 Glucose 182 H 113 H POC Glucose 168 H Calculated Osmolality 297 304 H Calcium 8.7 9.1 Magnesium 1.7 06/08/17 11:08 WBC 4.5 RBC 4.60 Hgb 13.5 Hct 42.4 MCV 92.2 MCH 29.3 MCHC 31.8 RDW 14.2 Plt Count 142 MPV 11.6 Immature Gran % 0.2 Seg Neutrophils % 63.6 Lymphocytes % 26.4 Monocytes % 6.9 Eosinophils % 2.2 Basophils % 0.7 Neutrophils # 2.8 Lymphocytes # 1.2 Monocytes # 0.3 Eosinophils # 0.1 Basophils # 0.0 Sodium Potassium Chloride Carbon Dioxide BUN Creatinine Est GFR ( Amer) Est GFR (Non-Af Amer) BUN/Creatinine Ratio Glucose POC Glucose Calculated Osmolality Calcium Magnesium - Impressions ITS Impressions Abdomen/Pelvis CT 06/08/17 11:59 IMPRESSION: Extensive free air felt to be related to perforated diverticulum in the distal sigmoid colon. This information was discussed at 1 p.m. on 06/08/[address] Kuhn D/ / Ender Erickson MD / Ender Erickson MD Interpreting Provider: Ender Erickson MD <Ramo Anderson E - Last Filed: 06/10/17 05:36> Date of Encounter: 06/10/17 General Surgery Exam Initial Vital Signs Temp Pulse Resp BP Pulse Ox 97.8 F 56 18 173/75 95 06/08/17 10:45 06/08/17 10:45 06/08/17 10:45 06/08/17 10:45 06/08/17 10:45 Date of admission: 06/09/17 12:06 Primary care physician: PCP NONE - Patient Status Functional capacity at discharge: independent ambulation Overall status at discharge: patient is progressing back to baseline - Hospital Course Hospital course: Ms. Ruby is a 76 year old female - Time Spent with Patient Total time spent providing and/or coordinating discharge services: Labs on day of discharge: Labs from last 24 hours 06/10/17 06/10/17 06/10/17 03:11 03:11 03:11 WBC 10.3 RBC 4.05 Hgb 12.1 Hct 37.7 MCV 93.1 MCH 29.9 MCHC 32.1 RDW 14.8 H Plt Count 133 L MPV 12.5 H Immature Gran % 0.3 Seg Neutrophils % 79.1 Lymphocytes % 11.7 Monocytes % 7.4 Eosinophils % 1.3 Basophils % 0.2 Neutrophils # 8.1 Lymphocytes # 1.2 Monocytes # 0.8 Eosinophils # 0.1 Basophils # 0.0 Sodium 141 Potassium 3.9 Chloride 107 Carbon Dioxide 28 BUN 12 Creatinine 0.67 Est GFR ( Amer) > 60 Est GFR (Non-Af Amer) > 60 BUN/Creatinine Ratio 18 Glucose 158 H POC Glucose Calculated Osmolality 295 Calcium 8.8 Magnesium 1.9 06/09/17 06/09/17 06/09/17 21:14 15:24 12:27 WBC RBC Hgb Hct MCV MCH MCHC RDW Plt Count MPV Immature Gran % Seg Neutrophils % Lymphocytes % Monocytes % Eosinophils % Basophils % Neutrophils # Lymphocytes # Monocytes # Eosinophils # Basophils # Sodium Potassium Chloride Carbon Dioxide BUN Creatinine Est GFR ( Amer) Est GFR (Non-Af Amer) BUN/Creatinine Ratio Glucose POC Glucose 145 H 201 H 144 H Calculated Osmolality Calcium Magnesium 06/09/17 06/08/17 09:01 20:26 WBC RBC Hgb Hct MCV MCH MCHC RDW Plt Count MPV Immature Gran % Seg Neutrophils % Lymphocytes % Monocytes % Eosinophils % Basophils % Neutrophils # Lymphocytes # Monocytes # Eosinophils # Basophils # Sodium Potassium Chloride Carbon Dioxide BUN Creatinine Est GFR ( Amer) Est GFR (Non-Af Amer) BUN/Creatinine Ratio Glucose POC Glucose 154 H 168 H Calculated Osmolality Calcium Magnesium - Impressions ITS Impressions Abdomen/Pelvis CT 06/08/17 11:59 IMPRESSION: Extensive free air felt to be related to perforated diverticulum in the distal sigmoid colon. This information was discussed at 1 p.m. on 06/08/[address] Kuhn D/ / Ender Erickson MD / Ender Erickson MD Interpreting Provider: Ender Erickson MD - Attending Attestation Patient's been tolerating liquids without any difficulties. She ambulates independently. Therefore, we will plan for discharge this morning after breakfast.
[2017-06-09] MEDS ORDERED: Acetaminophen 325 MG TABLET PO PRN (11:35)
[2017-06-09] MEDS ORDERED: *HR* OxyCODONE/APAP 5/325 TABLET PO PRN (11:35)
[2017-06-09] MEDS ORDERED: *HR* Morphine 2 MG/ML SYRINGE IVP PRN (11:35)
[2017-06-09] MEDS: Aspirin 81 MG TAB.CHEW PO SCH (13:41)
--- NOTE | 2017-06-09 14:47 | Electrocardiograph Report ---
[place] [id number] Test Date: 2017-06-09 Pat Name: Abida Ruby Department: 114 Room: [facility] Gender: F Hand Miter Operator: : 1940 Requested By: Sandrine Bean Order Number: [id number] Reading MD: Fartun Starkey Measurements Intervals [place] Rate: 65 P: 90 WV: 189 QRS: -4 QRSD: 96 T: 75 QT: 389 QTc: 400 Interpretive Statements SINUS RHYTHM NONSPECIFIC T-WAVE ABNORMALITY Electronically Signed On 06-09-2017 14:45:39 EDT by Fartun Starkey
--- NOTE | 2017-06-09 15:57 | Electrocardiograph Report ---
[address] [place], [place] [address] Test Date: 2017-06-08 Pat Name: Abida Ruby Department: 114 Room: [facility] Gender: F Broomcorn Seeder: : 1940 Requested By: Anmol Vogel Order Number: [id number] Reading MD: Fartun Starkey Measurements Intervals [place] Rate: 172 P: FL: 0 QRS: 11 QRSD: 103 T: -60 QT: 234 QTc: 327 Interpretive Statements ATRIAL FIBRILLATION WITH RAPID VENTRICULAR RESPONSE POSSIBLE ANTERIOR MYOCARDIAL INFARCTION, PROBABLY OLD INFERIOR MYOCARDIAL INFARCTION, OF INDETERMINATE AGE ST DEPRESSION, CONSIDER SUBENDOCARDIAL INJURY Electronically Signed On 06-09-2017 15:55:47 EDT by Fartun Starkey
--- NOTE | 2017-06-09 16:29 | Electrocardiograph Report ---
[place] [id number] Test Date: 2017-06-08 Pat Name: Abida Ruby Department: 114 Room: [facility] Gender: F End Trimmer: : 1940 Requested By: Enrique Kuhn Order Number: [id number] Reading MD: Fartun Starkey Measurements Intervals [place] Rate: 63 P: 105 MO: 201 QRS: -24 QRSD: 106 T: 70 QT: 387 QTc: 394 Interpretive Statements SINUS RHYTHM BORDERLINE LEFT AXIS DEVIATION NONSPECIFIC T-WAVE ABNORMALITY Electronically Signed On 06-09-2017 16:27:55 EDT by Fartun Starkey
[2017-06-09] MEDS: *HR* Heparin 5,000 UNIT/ML VIAL SQ SCH (17:38)
[2017-06-10 04:47] LABS: Basophils % 0.2 %; Eosinophils # 0.1 K/mcL (0.0-0.6); Eosinophils % 1.3 %; Hematocrit 37.7 % (35.3-44.9); Hemoglobin 12.1 g/dL (11.5-15.4); Immature Granulocytes % 0.3 % (0-4); Lymphocytes # 1.2 K/mcL (0.6-4.6); Lymphocytes % 11.7 %; Mean Corpuscular HGB Conc 32.1 g/dL (31.6-35.5); Mean Corpuscular Hemoglobin 29.9 pg (28.0-33.3); Mean Corpuscular Volume 93.1 fL (83.0-100.0); Mean Platelet Volume 12.5 fL (9.4-12.4); Monocytes # 0.8 K/mcL (0.0-1.3); Monocytes % 7.4 %; Neutrophils # 8.1 K/mcL (1.6-8.9); Platelet Count 133 K/mcL (140-400); Red Blood Count 4.05 M/mcL (3.82-4.97); Red Cell Distribution Width 14.8 % (11.5-14.5); Segmented Neutrophils % 79.1 %
[2017-06-10 05:02] LABS: BUN/Creatinine Ratio 18 (6-26); Blood Urea Nitrogen 12 mg/dL (7-20); Calcium 8.8 mg/dL (8.6-10.8); Carbon Dioxide 28 mEq/L (19-29); Chloride 107 mEq/L (98-109); Glucose 158 mg/dL (70-99); Osmolality,Calculated 295 (280-300); Potassium 3.9 mEq/L (3.5-4.5); Sodium 141 mEq/L (136-145); eGFR For African Americans > 60 (> 60); eGFR For Non-African Americans > 60 (> 60)
[2017-06-10] MEDS: Piperacillin/Tazobactam 3.375 GM in D5% in Water (Mini-Bag+) 100 ML IVPB SCH ×2 (05:34→13:11)
[2017-06-10] MEDS: *HR* Heparin 5,000 UNIT/ML VIAL SQ SCH (05:35)
[2017-06-10] MEDS ORDERED: Diltiazem CD (24hr) 180 MG CAPSULE PO SCH (09:00)
--- NOTE | 2017-06-10 09:04 | Internal Med Progress Note ---
Date of Encounter: 06/10/17 Time of Encounter: 09:00 - Assessment and plan (1) New onset a-fib Current Visit: Yes Status: Acute Assessment and plan: Triggered by surgery stress Converted back to NSR right away No more events..Doing well on Cardizem PO Switched to Cardizem CD 180mg daily today Reviewed 2 D Echo - Normal LVEF..no abnormalities noticed her CHADSVAS score 3.. However this is first time A fib triggered by surgery stress, may not need to be fully anticoagulated started on ASA 81mg pO daily y/d (2) Perforated sigmoid colon Current Visit: Yes Status: Resolved Assessment and plan: s/p Exploratory Celiotomy POD # 2 WBC trended down Cont current excellent post op care by primary team cont empirical abx Zosyn..Ok to switch to Augmentin 875 PO BID for another 4 days course ( total 7 days ) to go home Diet orders as per surgery recommendations only (3) HTN (hypertension), malignant Current Visit: Yes Status: Acute Assessment and plan: Stable.. On Cardizem PO (4) HLD (hyperlipidemia) Current Visit: Yes Status: Acute Assessment and plan: on statin Qualifiers: Hyperlipidemia type: pure hypercholesterolemia Qualified Code(s): E78.00 - Pure hypercholesterolemia, unspecified; E78.0 - Pure hypercholesterolemia (5) Depression Current Visit: Yes Status: Chronic Assessment and plan: continue home meds Qualifiers: Depression Type: major depressive disorder Major depression recurrence: single episode Active/Remission status: in full remission Qualified Code(s) : F32.5 - Major depressive disorder, single episode, in full remission - Subjective Interval history: Ms. Ruby is a 76 year old female who presents with new AFib while in the hospital. She has a hx of HTN, HLD, depression. She had an elective colonoscopy 06/08/17 and found a perforated sigmoid diverticulum. She received an exploratory surgery with repair of perforation. However, post-op she developed AFib rvr with rate 172 responded quickly to metoprolol 2.5 mg IV once. She appears to have been cardioverted with that one time b-yakov. This is morning pt is alert, awake and O x 3, denied any CP / SOB / Palpitations. Pt denied any nausea / vomiting. No BM , passing gas ok. Pain tolerable with medications - Constitutional Vitals: Temp Pulse Resp BP Pulse Ox 98.9 F 64 16 126/68 96 06/10/17 06:57 06/10/17 06:57 06/10/17 06:57 06/10/17 06:57 06/10/17 06:57 General appearance: Present: A&O X 3, pleasant, no acute distress, answers questions appropriately - Head Head exam: Present: atraumatic, normal inspection - Respiratory Respiratory exam: Present: decreased breath sounds. Absent: rales, respiratory distress, rhonchi, wheezes - Cardiovascular Cardiovascular exam: Present: RRR, +S1, +S2. Absent: diastolic murmur, gallop, rubs, systolic murmur - GI/Abdominal GI/Abdominal exam: Present: normal bowel sounds, soft, tenderness (mild discomfort aroung surgical incision area). Absent: rebound, rigid - Extremities Exam Extremities exam: Absent: calf tenderness, pedal edema, tenderness - Psychiatric Psychiatric exam: Present: normal affect, normal mood Internal Medicine: Result - Labs CBC & Chem 7: 06/10/17 03:11 06/10/17 03:11 Labs: Short CBC 06/10/17 Range/Units 03:11 WBC 10.3 (4.3-11.1) K/mcL Hgb 12.1 (11.5-15.4) g/dL Hct 37.7 (35.3-44.9) % Plt Count 133 L (140-400) K/mcL Neutrophils # 8.1 (1.6-8.9) K/mcL BMP 06/10/17 03:11 Sodium 141 Potassium 3.9 Chloride 107 Carbon Dioxide 28 BUN 12 Creatinine 0.67 Glucose 158 H Calcium 8.8 - VTE Documentation of Mechanical Device: Intermittent pneumatic compression device Consult Discharge Plan - Plan Additional Instructions: #1 may shower now, no tub bath until cleared per surgeon #2 wash incisions with soap and water and pat dry daily #3 no lifting, pushing, pulling more than 15 pounds for the next 4 weeks #4 no driving until off narcotics for 24 hours and able to safely react in the car #5 may climb stairs Wound care: #1 midline incision- cleanse around incision with soap and water and pat dry daily, pack open areas with a quarter inch plain gauze, covered with dry dressing, tape to secure daily #2 NICOLE drain- cleanse around drain with soap and water and pat dry daily, apply split 4 x 4 gauze and tape to secure daily. Empty drain 2 times daily and as needed if full, record outputs on drain record and bring to follow up appointment on 06/15/2017 with Fartun Lewis Referrals: Fartun Lewis CNP [Advanced Practice Nurse] - 06/15/17 11:45 am (surgery follow-up; drain check)
[2017-06-10] MEDS: Aspirin 81 MG TAB.CHEW PO SCH (10:28)
[2017-06-10] MEDS: Pantoprazole 40 MG VIAL IVP SCH (10:28)
[2017-06-10 15:58] VITALS: BP 132/73
--- NOTE | 2017-06-13 14:14 | Electrocardiograph Report ---
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 Electronically Signed On 06-13-2017 14:13:31 EDT by Fartun Starkey
== END 2017-06-10 18:39 | disposition home or self-care (01) | DRG 330 ==
LOC: 3NENU
PROVIDERS: ADMIT Surgery; ATTEND Surgery

== ENCOUNTER 2022-01-11 15:35 | Inpatient (IN) ==
[2022-01-11 16:41] LABS: Basophils % 0.7 %; Eosinophils # 0.1 K/mcL (0.0-0.6); Eosinophils % 2.3 %; Hematocrit 38.1 % (35.3-44.9); Hemoglobin 11.9 g/dL (11.5-15.4); Immature Granulocytes % 0.2 % (0-4); Lymphocytes # 1.7 K/mcL (0.6-4.6); Mean Corpuscular HGB Conc 31.2 g/dL (31.6-35.5); Mean Corpuscular Hemoglobin 29.2 pg (28.0-33.3); Mean Corpuscular Volume 93.4 fL (83.0-100.0); Mean Platelet Volume 12.2 fL (9.4-12.4); Monocytes # 0.7 K/mcL (0.0-1.3); Monocytes % 11.2 %; Neutrophils # 3.4 K/mcL (1.6-8.9); Platelet Count 131 K/mcL (140-400); Red Blood Count 4.08 M/mcL (3.82-4.97); Red Cell Distribution Width 18.5 % (11.5-14.5); Segmented Neutrophils % 56.6 %
[2022-01-11 16:49] LABS: INR 1.4; Prothrombin Time 15.9 Seconds (9.4-12.1)
[2022-01-11 16:51] LABS: Activated Partial Thrombo Time 34.3 Seconds (26.0-36.0)
[2022-01-11 17:17] LABS: BUN/Creatinine Ratio 36 (6-26); Blood Urea Nitrogen 34 mg/dL (8-23); Calcium 9.5 mg/dL (8.6-10.3); Carbon Dioxide 25 mEq/L (23-29); Chloride 108 mEq/L (98-107); Glucose 97 mg/dL (70-105); Osmolality,Calculated 302 (280-300); Potassium 4.6 mEq/L (3.5-5.1); Sodium 142 mEq/L (136-145); Thyroid Stimulating Hormone 3.737 mcIU/mL (0.340-5.600); Troponin I 0.04 ng/mL (< 0.04); eGFR For African Americans > 60 (> 60); eGFR For Non-African Americans 57 (> 60)
[2022-01-11] MEDS ORDERED: Naloxone 0.4 MG/ML INJ IVP PRN (18:16)
[2022-01-11] MEDS ORDERED: Ondansetron 4 MG/2 ML VIAL IVP PRN (18:16)
[2022-01-12 04:55] LABS: Basophils % 0.6 %; Immature Granulocytes % 0.2 % (0-4); Red Blood Count 3.92 M/mcL (3.82-4.97); Red Cell Distribution Width 18.6 % (11.5-14.5)
[2022-01-12 04:57] LABS: Eosinophils # 0.2 K/mcL (0.0-0.6); Eosinophils % 3.2 %; Hematocrit 36.9 % (35.3-44.9); Hemoglobin 11.2 g/dL (11.5-15.4); Immature Platelets 10.4 % (1.1-6.1); Lymphocytes # 1.4 K/mcL (0.6-4.6); Lymphocytes % 28.3 %; Mean Corpuscular HGB Conc 30.4 g/dL (31.6-35.5); Mean Corpuscular Hemoglobin 28.6 pg (28.0-33.3); Mean Corpuscular Volume 94.1 fL (83.0-100.0); Mean Platelet Volume 13.1 fL (9.4-12.4); Monocytes # 0.5 K/mcL (0.0-1.3); Monocytes % 10.6 %; Neutrophils # 2.9 K/mcL (1.6-8.9); Platelet Count 120 K/mcL (140-400); Segmented Neutrophils % 57.1 %
[2022-01-12 05:21] LABS: BUN/Creatinine Ratio 40 (6-26); Blood Urea Nitrogen 29 mg/dL (8-23); Calcium 8.7 mg/dL (8.6-10.3); Carbon Dioxide 24 mEq/L (23-29); Chloride 110 mEq/L (98-107); Glucose 122 mg/dL (70-105); Magnesium 2.1 mg/dL (1.6-2.6); Osmolality,Calculated 299 (280-300); Phosphorous 4.2 mg/dL (2.7-4.5); Potassium 4.8 mEq/L (3.5-5.1); Sodium 141 mEq/L (136-145); Troponin I 0.03 ng/mL (< 0.04); eGFR For African Americans > 60 (> 60); eGFR For Non-African Americans > 60 (> 60)
[2022-01-12] MEDS ORDERED: Perflutren Lipid Microsphere 1.3 ML in 0.9 % Sodium Chloride 8.7 ML IVP PRN (08:30)
[2022-01-12] MEDS: Multivit/Ca/Min/Fe/FA 1 TAB TABLET PO SCH (09:22)
[2022-01-12] MEDS: Cholecalciferol (D-3) 1,000 UNIT (25MCG) TABLET PO SCH (09:23)
[2022-01-12] MEDS: lisinopriL 10 MG TABLET PO SCH (09:23)
[2022-01-12] MEDS: amLODIPine 5 MG TABLET PO SCH (16:05)
[2022-01-12] MEDS ORDERED: *HR* Atropine Sulfate 1 MG/10 ML SYRINGE ONE (16:15)
[2022-01-12] MEDS: Latanoprost 2.5 ML BOTTLE BOTH EYES SCH (17:16)
[2022-01-13] MEDS: Cholecalciferol (D-3) 1,000 UNIT (25MCG) TABLET PO SCH (08:15)
[2022-01-13] MEDS: lisinopriL 10 MG TABLET PO SCH (08:15)
[2022-01-13] MEDS: amLODIPine 5 MG TABLET PO SCH (08:15)
[2022-01-13] MEDS: Multivit/Ca/Min/Fe/FA 1 TAB TABLET PO SCH (08:15)
[2022-01-13] MEDS ORDERED: amLODIPine 5 MG TABLET PO ONE (10:01)
[2022-01-13] MEDS: Apixaban 5 MG TABLET PO SCH ×2 (12:48→20:05)
[2022-01-13] MEDS: DilTIAZem CD (24hr) 120 MG CAP.ER.24H PO SCH (12:48)
[2022-01-13] MEDS: Latanoprost 2.5 ML BOTTLE BOTH EYES SCH (18:13)
[2022-01-14 01:54] LABS: Basophils % 0.1 %; Eosinophils # 0.1 K/mcL (0.0-0.6); Hematocrit 37.3 % (35.3-44.9); Hemoglobin 12.3 g/dL (11.5-15.4); Immature Granulocytes % 0.3 % (0-4); Lymphocytes % 14.1 %; Mean Corpuscular Hemoglobin 29.7 pg (28.0-33.3); Mean Corpuscular Volume 90.1 fL (83.0-100.0); Mean Platelet Volume 11.9 fL (9.4-12.4); Monocytes # 0.6 K/mcL (0.0-1.3); Monocytes % 8.2 %; Neutrophils # 5.2 K/mcL (1.6-8.9); Platelet Count 133 K/mcL (140-400); Red Blood Count 4.14 M/mcL (3.82-4.97); Red Cell Distribution Width 18.8 % (11.5-14.5); Segmented Neutrophils % 75.3 %
[2022-01-14 02:05] LABS: BUN/Creatinine Ratio 30 (6-26); Blood Urea Nitrogen 18 mg/dL (8-23); Calcium 9.1 mg/dL (8.6-10.3); Carbon Dioxide 26 mEq/L (23-29); Chloride 105 mEq/L (98-107); Glucose 143 mg/dL (70-105); Osmolality,Calculated 294 (280-300); Potassium 3.2 mEq/L (3.5-5.1); Sodium 140 mEq/L (136-145); eGFR For African Americans > 60 (> 60); eGFR For Non-African Americans > 60 (> 60)
[2022-01-14 07:41] VITALS: BP 158/77; PULSE 65; TEMP 97.3; O2SAT 96
[2022-01-14] MEDS ORDERED: amLODIPine 5 MG TABLET PO SCH (09:00)
[2022-01-14] MEDS: Cholecalciferol (D-3) 1,000 UNIT (25MCG) TABLET PO SCH (09:41)
[2022-01-14] MEDS: DilTIAZem CD (24hr) 120 MG CAP.ER.24H PO SCH (09:41)
[2022-01-14] MEDS: Multivit/Ca/Min/Fe/FA 1 TAB TABLET PO SCH (09:41)
[2022-01-14] MEDS: lisinopriL 10 MG TABLET PO SCH (09:41)
[2022-01-14] MEDS: Apixaban 5 MG TABLET PO SCH (09:41)
== END 2022-01-14 15:21 | disposition home or self-care (01) | DRG 282 ==
LOC: EMEROOARM 15:35 → 2NNU 01-12 12:02
PROVIDERS: ADMIT Internal Medicine; ATTEND Internal Medicine

== ENCOUNTER 2022-03-14 18:46 | Inpatient (IN) ==
[2022-03-14 22:36] LABS: Basophils % 0.5 %; Eosinophils % 2.6 %; Hemoglobin 12.3 g/dL (11.5-15.4); Lymphocytes % 32.1 %; Mean Corpuscular Volume 93.8 fL (83.0-100.0)
[2022-03-14 22:38] LABS: Eosinophils # 0.2 K/mcL (0.0-0.6); Immature Granulocytes % 0.4 % (0-4); Immature Platelets 9.3 % (1.1-6.1); Lymphocytes # 1.8 K/mcL (0.6-4.6); Mean Corpuscular HGB Conc 32.4 g/dL (31.6-35.5); Mean Corpuscular Hemoglobin 30.4 pg (28.0-33.3); Monocytes # 0.4 K/mcL (0.0-1.3); Monocytes % 7.4 %; Neutrophils # 3.3 K/mcL (1.6-8.9); Platelet Count 135 K/mcL (140-400); Red Blood Count 4.05 M/mcL (3.82-4.97); Red Cell Distribution Width 15.7 % (11.5-14.5); White Blood Count 5.7 K/mcL (4.3-11.1)
[2022-03-14 22:59] LABS: BUN/Creatinine Ratio 29 (6-26); Blood Urea Nitrogen 23 mg/dL (8-23); Carbon Dioxide 24 mEq/L (23-29); Chloride 109 mEq/L (98-107); Potassium 4.2 mEq/L (3.5-5.1); Sodium 141 mEq/L (136-145); eGFR For African Americans > 60 (> 60)
[2022-03-14 23:00] LABS: Calcium 9.4 mg/dL (8.6-10.3); Glucose 151 mg/dL (70-105); Osmolality,Calculated 299 (280-300); Troponin I < 0.03 ng/mL (< 0.04); eGFR For Non-African Americans > 60 (> 60)
[2022-03-14 23:06] LABS: Platelet Estimate Normal (Normal)
[2022-03-14 23:19] LABS: Magnesium 2.2 mg/dL (1.6-2.6)
[2022-03-15] MEDS ORDERED: Furosemide 20 MG TABLET PO ONE (00:59)
[2022-03-15] MEDS ORDERED: Naloxone 0.4 MG/ML INJ IVP PRN (01:41)
[2022-03-15] MEDS ORDERED: *HR* Atropine Sulfate 1 MG/10 ML SYRINGE IVP PRN ×3 (03:28→11:49)
[2022-03-15] MEDS ORDERED: *HR* Dextrose 50 % in Water (Syg) 50 ML SYRINGE IVP PRN (03:29)
[2022-03-15] MEDS ORDERED: D5% in Water 1,000 ML IVC PRN (03:29)
[2022-03-15] MEDS ORDERED: Dextrose Gel 15 GM/37.5 ML TUBE PO PRN ×2 (03:29)
[2022-03-15] MEDS ORDERED: *HR* Heparin 5,000 UNIT/ML VIAL IVP PRN ×2 (04:21)
[2022-03-15] MEDS ORDERED: Heparin 25,000UNIT/250ML 1/2NS 25,000 UNIT/250 ML IV.SOLN IVC SCH (04:30)
[2022-03-15 07:02] LABS: Hematocrit 37.6 % (35.3-44.9); Hemoglobin 12.2 g/dL (11.5-15.4); Mean Corpuscular HGB Conc 32.4 g/dL (31.6-35.5); Mean Corpuscular Hemoglobin 30.1 pg (28.0-33.3); Mean Corpuscular Volume 92.8 fL (83.0-100.0); Mean Platelet Volume 12.1 fL (9.4-12.4); Platelet Count 138 K/mcL (140-400); Red Blood Count 4.05 M/mcL (3.82-4.97); Red Cell Distribution Width 15.7 % (11.5-14.5); White Blood Count 4.7 K/mcL (4.3-11.1)
[2022-03-15 07:28] LABS: Phosphorous 3.8 mg/dL (2.7-4.5)
[2022-03-15 07:31] LABS: BUN/Creatinine Ratio 25 (6-26); Blood Urea Nitrogen 18 mg/dL (8-23); Calcium 9.3 mg/dL (8.6-10.3); Carbon Dioxide 30 mEq/L (23-29); Chloride 107 mEq/L (98-107); Glucose 131 mg/dL (70-105); Osmolality,Calculated 302 (280-300); Potassium 3.4 mEq/L (3.5-5.1); Sodium 144 mEq/L (136-145); eGFR For African Americans > 60 (> 60); eGFR For Non-African Americans > 60 (> 60)
[2022-03-15] MEDS: Heparin 25,000UNIT/250ML 1/2NS 25,000 UNIT/250 ML IV.SOLN IVC SCH (07:54)
[2022-03-15 10:15] LABS: Thyroid Stimulating Hormone 3.232 mcIU/mL (0.340-5.600)
[2022-03-15] MEDS ORDERED: *HR* Atropine Sulfate 1 MG/10 ML SYRINGE ONE (10:47)
[2022-03-15 10:54] LABS: Estimated Average Glucose 114 mg/dl; Hemoglobin A1C 5.6 %
[2022-03-15] MEDS: 0.9 % Sodium Chloride 1,000 ML IVC SCH (11:23)
[2022-03-15 21:01] LABS: INR 1.3; Prothrombin Time 14.2 Seconds (9.4-12.1)
[2022-03-15] MEDS: Latanoprost 2.5 ML BOTTLE BOTH EYES SCH (21:41)
[2022-03-16] MEDS: 0.9 % Sodium Chloride 1,000 ML IVC SCH ×2 (00:40→15:01)
[2022-03-16 07:04] LABS: Basophils % 0.9 %; Eosinophils # 0.1 K/mcL (0.0-0.6); Hematocrit 39.8 % (35.3-44.9); Hemoglobin 12.6 g/dL (11.5-15.4); Immature Granulocytes % 0.2 % (0-4); Lymphocytes # 1.4 K/mcL (0.6-4.6); Lymphocytes % 29.4 %; Mean Corpuscular HGB Conc 31.7 g/dL (31.6-35.5); Mean Corpuscular Hemoglobin 29.7 pg (28.0-33.3); Mean Corpuscular Volume 93.9 fL (83.0-100.0); Mean Platelet Volume 11.8 fL (9.4-12.4); Monocytes # 0.4 K/mcL (0.0-1.3); Monocytes % 9.2 %; Neutrophils # 2.7 K/mcL (1.6-8.9); Platelet Count 145 K/mcL (140-400); Red Blood Count 4.24 M/mcL (3.82-4.97); Red Cell Distribution Width 15.5 % (11.5-14.5); Segmented Neutrophils % 57.3 %; White Blood Count 4.7 K/mcL (4.3-11.1)
[2022-03-16 07:44] LABS: BUN/Creatinine Ratio 26 (6-26); Blood Urea Nitrogen 16 mg/dL (8-23); Calcium 8.9 mg/dL (8.6-10.3); Carbon Dioxide 24 mEq/L (23-29); Chloride 111 mEq/L (98-107); Glucose 97 mg/dL (70-105); Magnesium 1.9 mg/dL (1.6-2.6); Osmolality,Calculated 295 (280-300); Phosphorous 3.1 mg/dL (2.7-4.5); Potassium 4.3 mEq/L (3.5-5.1); Sodium 142 mEq/L (136-145); eGFR For African Americans > 60 (> 60); eGFR For Non-African Americans > 60 (> 60)
[2022-03-16] MEDS: Cholecalciferol (D-3) 1,000 UNIT (25MCG) TABLET PO SCH (08:24)
[2022-03-16] MEDS: Heparin 25,000UNIT/250ML 1/2NS 25,000 UNIT/250 ML IV.SOLN IVC SCH (15:01)
[2022-03-16] MEDS: Latanoprost 2.5 ML BOTTLE BOTH EYES SCH (22:47)
[2022-03-17 03:57] LABS: Basophils % 0.2 %; Eosinophils # 0.1 K/mcL (0.0-0.6); Eosinophils % 2.6 %; Hematocrit 38.2 % (35.3-44.9); Hemoglobin 12.2 g/dL (11.5-15.4); Immature Granulocytes % 0.2 % (0-4); Lymphocytes # 1.5 K/mcL (0.6-4.6); Mean Corpuscular HGB Conc 31.9 g/dL (31.6-35.5); Mean Corpuscular Hemoglobin 29.6 pg (28.0-33.3); Mean Corpuscular Volume 92.7 fL (83.0-100.0); Mean Platelet Volume 11.8 fL (9.4-12.4); Monocytes # 0.5 K/mcL (0.0-1.3); Monocytes % 9.9 %; Neutrophils # 2.6 K/mcL (1.6-8.9); Platelet Count 150 K/mcL (140-400); Red Blood Count 4.12 M/mcL (3.82-4.97); Red Cell Distribution Width 15.5 % (11.5-14.5); Segmented Neutrophils % 55.1 %; White Blood Count 4.7 K/mcL (4.3-11.1)
[2022-03-17] MEDS: 0.9 % Sodium Chloride 1,000 ML IVC SCH ×2 (07:18→14:05)
[2022-03-17] MEDS: Cholecalciferol (D-3) 1,000 UNIT (25MCG) TABLET PO SCH (08:07)
[2022-03-17 08:44] LABS: BUN/Creatinine Ratio 31 (6-26); Blood Urea Nitrogen 21 mg/dL (8-23); Calcium 9.1 mg/dL (8.6-10.3); Carbon Dioxide 25 mEq/L (23-29); Chloride 110 mEq/L (98-107); Glucose 101 mg/dL (70-105); Osmolality,Calculated 297 (280-300); Potassium 4.2 mEq/L (3.5-5.1); Sodium 142 mEq/L (136-145); eGFR For African Americans > 60 (> 60); eGFR For Non-African Americans > 60 (> 60)
[2022-03-17] MEDS ORDERED: *HR* FentaNYL (PF) 100 MCG/2 ML VIAL ONE (11:57)
[2022-03-17] MEDS ORDERED: *HR* Midazolam HCl 2 MG/2 ML VIAL ONE (11:57)
[2022-03-17] MEDS ORDERED: 0.9 % Sodium Chloride 500 ML ONE (11:57)
[2022-03-17] MEDS ORDERED: 0.9 % Sodium Chloride 1,000 ML ONE (12:15)
[2022-03-17] MEDS: DilTIAZem CD (24hr) 120 MG CAP.ER.24H PO SCH (14:05)
[2022-03-17] MEDS ORDERED: *HR* Heparin 5,000 UNIT/ML VIAL IVP PRN ×2 (16:21)
[2022-03-17] MEDS ORDERED: Heparin 25,000UNIT/250ML 1/2NS 25,000 UNIT/250 ML IV.SOLN IVC SCH ×2 (16:30→16:45)
[2022-03-17] MEDS: CeFAZolin 2 GM/120 ML BAG IVPB SCH (17:07)
[2022-03-17] MEDS: Apixaban 5 MG TABLET PO SCH (22:08)
[2022-03-17] MEDS: Latanoprost 2.5 ML BOTTLE BOTH EYES SCH (22:08)
[2022-03-18] MEDS ORDERED: Ibuprofen 400 MG TABLET PO PRN (00:15)
[2022-03-18] MEDS: CeFAZolin 2 GM/120 ML BAG IVPB SCH (00:31)
[2022-03-18] MEDS: DilTIAZem CD (24hr) 120 MG CAP.ER.24H PO SCH (09:23)
[2022-03-18] MEDS: Cholecalciferol (D-3) 1,000 UNIT (25MCG) TABLET PO SCH (09:23)
[2022-03-18] MEDS: Apixaban 5 MG TABLET PO SCH (09:25)
[2022-03-18] MEDS: 0.9 % Sodium Chloride 1,000 ML IVC SCH ×4 (09:26→23:01)
[2022-03-18 10:07] LABS: Basophils % 0.2 %; Hematocrit 39.3 % (35.3-44.9); Hemoglobin 12.4 g/dL (11.5-15.4); Immature Granulocytes % 0.4 % (0-4); Lymphocytes # 1.1 K/mcL (0.6-4.6); Lymphocytes % 13.1 %; Mean Corpuscular HGB Conc 31.6 g/dL (31.6-35.5); Mean Corpuscular Hemoglobin 29.7 pg (28.0-33.3); Mean Corpuscular Volume 94.2 fL (83.0-100.0); Mean Platelet Volume 11.6 fL (9.4-12.4); Monocytes # 0.5 K/mcL (0.0-1.3); Monocytes % 5.9 %; Neutrophils # 6.4 K/mcL (1.6-8.9); Platelet Count 160 K/mcL (140-400); Red Blood Count 4.17 M/mcL (3.82-4.97); Red Cell Distribution Width 15.9 % (11.5-14.5); Segmented Neutrophils % 80.4 %
[2022-03-18 10:25] LABS: Calcium 9.1 mg/dL (8.6-10.3); Potassium 4.7 mEq/L (3.5-5.1)
[2022-03-18] MEDS: Latanoprost 2.5 ML BOTTLE BOTH EYES SCH (20:42)
[2022-03-18 22:07] LABS: Bilirubin,Urine Negative (Negative); Blood,Urine Negative (Negative); Clarity,Urine Ex.Turbid (Clear); Color,Urine Yellow (Yellow); Glucose,Urine (UA) 30 mg/dL (Normal); Hyaline Casts,Urine Few per lpf (None Seen); Ketones,Urine 10 mg/dL (Negative); Leukocyte Esterase,Urine Moderate (Negative); Mucus,Urine Few per lpf (None-Few); Nitrite,Urine Negative (Negative); PH,Urine 5.5 pH Units (5.0-8.0); Protein,Urine 50 mg/dL (Neg-Trace); Renal Epithelial Cells,Urine Few per hpf (None-Few); Specific Gravity,Urine 1.022 (1.010-1.025); Squamous Epithelial Cell,Urine Many per hpf (None-Few); Urobilinogen,Urine Normal (Normal); WBC,Urine 15-30 per hpf (0-3)
[2022-03-18 22:09] LABS: Sodium, Urine 18.3 mEq/L
[2022-03-19] MEDS: 0.9 % Sodium Chloride 1,000 ML IVC SCH (05:36)
[2022-03-19 07:23] LABS: Hematocrit 32.7 % (35.3-44.9); Hemoglobin 10.4 g/dL (11.5-15.4); Mean Corpuscular HGB Conc 31.8 g/dL (31.6-35.5); Mean Corpuscular Hemoglobin 30.2 pg (28.0-33.3); Mean Corpuscular Volume 95.1 fL (83.0-100.0); Mean Platelet Volume 12.1 fL (9.4-12.4); Platelet Count 106 K/mcL (140-400); Red Blood Count 3.44 M/mcL (3.82-4.97); Red Cell Distribution Width 16.2 % (11.5-14.5); White Blood Count 6.5 K/mcL (4.3-11.1)
[2022-03-19 07:46] LABS: BUN/Creatinine Ratio 31 (6-26); Blood Urea Nitrogen 27 mg/dL (8-23); Calcium 8.4 mg/dL (8.6-10.3); Carbon Dioxide 23 mEq/L (23-29); Chloride 113 mEq/L (98-107); Glucose 139 mg/dL (70-105); Osmolality,Calculated 299 (280-300); Potassium 3.8 mEq/L (3.5-5.1); Sodium 141 mEq/L (136-145); eGFR For African Americans > 60 (> 60); eGFR For Non-African Americans > 60 (> 60)
[2022-03-19 07:55] VITALS: BP 144/75; PULSE 68; TEMP 98.1; O2SAT 95
[2022-03-19] MEDS: DilTIAZem CD (24hr) 120 MG CAP.ER.24H PO SCH (09:56)
[2022-03-19] MEDS: Cholecalciferol (D-3) 1,000 UNIT (25MCG) TABLET PO SCH (09:57)
== END 2022-03-19 11:08 | disposition home or self-care (01) | DRG 243 ==
LOC: 2NNU 18:46 → EMEROOARM 18:46 → SUATTDRO 03-15 01:39 → 2NNU 03-15 03:03 → 2ANU 03-18 20:39
PROVIDERS: ADMIT Internal Medicine; ATTEND Family Medicine